=== PATIENT | male | born 1950 | race Caucasian/White ===

== ENCOUNTER → 2016-06-26 | Outpatient (CLI) | payer BC ==
[~2016-06-26] VITALS: Ht 172.7 cm; Wt 88.5 kg
[~2016-06-26] MED LIST: ACYC1CAP8 PO; AMLO10TA2 PO; ASPI81TA85 PO; ATOR1TAB18 PO; FISH1000 PO; HYDR12.55 PO; LIDOCAINE 2% INJ 100 MG/5 ML SYRINGE As Ordered ONE; LISI-538 PO; METF500T PO; MULT1TAB10 PO; NS 1,000 ML IV SCH; OMEP40CA2 PO; PROPOFOL 500 MG/50 ML VIAL As Ordered ONE
--- NOTE | 2016-06-26 09:10 | ROOR ---
Patient Name: Chidi Garcia Procedure Date: 06/26/2016 8:52 AM Date of : 1950 Age: 65 Room: [facility] Gender: Male Note Status: Finalized Procedure: Upper GI endoscopy + Biopsies Indications: Heartburn Providers: Ash Gaxiola MD Referring MD: ESPERANZA DUARTE Requesting Provider: Medicines: Monitored Anesthesia Care Complications: No immediate complications. Procedure: Pre-Anesthesia Assessment: - The heart rate, respiratory rate, oxygen saturations, blood pressure, adequacy of pulmonary ventilation, and response to care were monitored throughout the procedure. The Colonoscope was introduced through the anus and advanced to the second part of duodenum. The upper GI endoscopy was accomplished without difficulty. The patient tolerated the procedure well. Findings: The Z-line was irregular and was found 40 cm from the incisors. Multiple biopsies were obtained with cold forceps for evaluation to rule out Schwab's Esophagus randomly at the gastroesophageal junction. No other significant abnormalities were identified in a careful examination of the stomach. The exam of the duodenum was otherwise normal. Impression: - Z-line irregular, 40 cm from the incisors. - Multiple biopsies were obtained at the gastroesophageal junction. - The examination was otherwise normal. Recommendation: - Patient has a contact number available for emergencies. The signs and symptoms of potential delayed complications were discussed with the patient. Return to normal activities tomorrow. Written discharge instructions were provided to the patient. - High fiber diet. - Discharge patient to home. - Continue present medications. - Await pathology results. - Telephone GI clinic for pathology results in 1 week. - Follow an antireflux regimen. - The findings and recommendations were discussed with the patient's family. Ash Gaxiola MD Ash Gaxiola MD 06/26/2016 9:10:24 AM This report has been signed electronically. Number of Addenda: 0 Note Initiated On: 06/26/2016 8:52 AM Estimated Blood Loss: Estimated blood loss: none.
--- NOTE | 2016-06-26 09:27 | ROOR ---
Patient Name: Chidi Garcia Procedure Date: 06/26/2016 8:51 AM Date of : 1950 Age: 65 Room: [facility] Gender: Male Note Status: Finalized Procedure: Colonoscopy to Cecum + Cold Snare Polypectomy + Hemoclip Indications: High risk colon cancer surveillance: Personal history of colonic polyps, Last colonoscopy: 2011 Providers: Ash Gaxiola MD Referring MD: ESPERANZA DUARTE Requesting Provider: Medicines: Monitored Anesthesia Care Complications: No immediate complications. Procedure: Pre-Anesthesia Assessment: - The heart rate, respiratory rate, oxygen saturations, blood pressure, adequacy of pulmonary ventilation, and response to care were monitored throughout the procedure. The Endoscope was introduced through the mouth, and advanced to the cecum, identified by appendiceal orifice and ileocecal valve. The colonoscopy was performed without difficulty. The patient tolerated the procedure well. The quality of the bowel preparation was good. Findings: The perianal and digital rectal examinations were normal. Non-bleeding internal hemorrhoids were found during retroflexion. The hemorrhoids were small and Grade I (internal hemorrhoids that do not prolapse). Scattered small-mouthed diverticula were found in the recto-sigmoid colon, sigmoid colon and descending colon. A medium polyp was found at 60 cm proximal to the anus. The polyp was sessile. The polyp was removed with a cold snare. Resection and retrieval were complete. To prevent bleeding after the polypectomy, one hemostatic clip was successfully placed (MR conditional). There was no bleeding at the end of the procedure. The exam was otherwise without abnormality on direct and retroflexion views. Impression: - Non-bleeding internal hemorrhoids. - Diverticulosis in the recto-sigmoid colon, in the sigmoid colon and in the descending colon. - One medium polyp at 60 cm proximal to the anus, removed with a cold snare. Resected and retrieved. Clip (MR conditional) was placed. - The examination was otherwise normal on direct and retroflexion views. - The exam was otherwise normal to the cecum. Recommendation: - Patient has a contact number available for emergencies. The signs and symptoms of potential delayed complications were discussed with the patient. Return to normal activities tomorrow. Written discharge instructions were provided to the patient. - High fiber diet. - Discharge patient to home. - Continue present medications. - Await pathology results. - Telephone GI clinic for pathology results in 1 week. - Repeat colonoscopy in 5 years for surveillance based on pathology results. - Return to referring physician. - The findings and recommendations were discussed with the patient's family. Ash Gaxiola MD Ash Gaxiola MD 06/26/2016 9:27:03 AM This report has been signed electronically. Number of Addenda: 0 Note Initiated On: 06/26/2016 8:51 AM Estimated Blood Loss: Estimated blood loss: none.
[2016-06-26 09:58] VITALS: BP 119/65
== END | disposition home or self-care (01) ==
LOC: M OPP 07:55
PROVIDERS: ATTEND Internal Medicine Gastroenterology
DX: Z12.11 Encounter for screening for malignant neoplasm of colon (principal); D12.4 Benign neoplasm of descending colon; K57.30 Diverticulosis of large intestine without perforation or abscess without bleeding; K64.0 First degree hemorrhoids; Z86.010 Personal history of colon polyps; R12 Heartburn; K22.8 Other specified diseases of esophagus; I25.10 Atherosclerotic heart disease of native coronary artery without angina pectoris; I10 Essential (primary) hypertension; E78.5 Hyperlipidemia, unspecified; E11.9 Type 2 diabetes mellitus without complications; M19.90 Unspecified osteoarthritis, unspecified site; F41.9 Anxiety disorder, unspecified; G47.8 Other sleep disorders; H49.22 Sixth [abducent] nerve palsy, left eye; K42.9 Umbilical hernia without obstruction or gangrene; Z95.5 Presence of coronary angioplasty implant and graft; Z95.1 Presence of aortocoronary bypass graft; F14.21 Cocaine dependence, in remission; F12.21 Cannabis dependence, in remission; Z79.82 Long term (current) use of aspirin; Z79.84 Long term (current) use of oral hypoglycemic drugs; Z79.899 Other long term (current) drug therapy

== ENCOUNTER 2018-08-01 09:32 | Emergency (ER) | payer BC ==
[~2018-08-01] VITALS: Ht 175.3 cm; Wt 86.4 kg
[~2018-08-01 09:32] MED LIST changes: -ACYC1CAP8 PO; +ACYC200C8 PO; -AMLO10TA2 PO; +AMLO10TA5 PO; -ATOR1TAB18 PO; +ATOR80TA59 PO; -LIDOCAINE 2% INJ 100 MG/5 ML SYRINGE As Ordered ONE; -METF500T PO; +METF500T13 PO; -NS 1,000 ML IV SCH; -PROPOFOL 500 MG/50 ML VIAL As Ordered ONE
--- NOTE | 2018-08-01 10:01 | REP ---
All chest x-ray: Single view. History: Chest pain. Comparison study: October 23, 2011. Findings: EKG monitoring electrodes overlie the chest. Median sternotomy wires are seen. Heart is not enlarged. Pulmonary vasculature is not increased. The pleural angles are sharp. An old healed left clavicle fracture is again noted. Impression: No active disease. Prior sternotomy. Electronically Signed by Dimitrios Galaviz MD 08/01/2018 09:52 A
[2018-08-01 10:09] LABS: BASO % 0.4 % (0.0-1.0); EOS # 0.1 10^3/uL (0.0-0.50); EOS % 0.8 % (0.0-3.0); HEMATOCRIT 47.4 % (42.0-52.0); HEMOGLOBIN 16.3 g/dl (13.5-17.5); LYMPH # 2.1 10^3/uL (1.5-4.5); LYMPH % 24.7 % (24.0-44.0); MEAN CORPUSCULAR HEMOGLOBIN 30.1 pg (27.0-33.0); MEAN CORPUSCULAR HGB CONC 34.4 g/dl (32.0-36.5); MEAN CORPUSCULAR VOLUME 87.6 fl (80.0-96.0); MONO # 0.5 10^3/uL (0.0-0.8); MONO % 6.3 % (0.0-5.0); NEUTROPHILS # 5.6 10^3/uL (1.8-7.7); NEUTROPHILS % 67.4 % (36.0-66.0); PLATELET COUNT, AUTOMATED 220 10^3/uL (150-450); RED BLOOD COUNT 5.41 10^6/uL (4.30-6.10); WHITE BLOOD COUNT 8.3 10^3/uL (4.0-10.0)
[2018-08-01] MEDS ORDERED: NITR0.4S14 (10:19)
[2018-08-01 10:23] LABS: INR 0.97
[2018-08-01 10:45] LABS: ALBUMIN 3.8 GM/DL (3.2-5.2); ALT/SGPT 39 U/L (12-78); BILIRUBIN,DIRECT 0.2 MG/DL (0.0-0.2); BILIRUBIN,TOTAL 0.8 MG/DL (0.2-1.0); BLOOD UREA NITROGEN 18 MG/DL (7-18); CALCIUM LEVEL 8.7 MG/DL (8.8-10.2); CARBON DIOXIDE LEVEL 29 MEQ/L (21-32); CHLORIDE LEVEL 104 MEQ/L (98-107); CPK CREATINE PHOSPHOKINASE 127 U/L (39-308); GLOMERULAR FILTRATION RATE > 60.0 (>49); GLUCOSE, FASTING 173 MG/DL (70-100); LIPASE 134 U/L (73-393); MB/CK RELATIVE INDEX 1.57 (< OR =4); NT-PRO BNP 94 PG/ML (<125); POTASSIUM SERUM 3.6 MEQ/L (3.5-5.1); SODIUM LEVEL 140 MEQ/L (136-145); TOTAL PROTEIN 7.4 GM/DL (6.4-8.2); TROPONIN I 0.06 NG/ML (< 0.10)
[2018-08-01 13:08] LABS: MB/CK RELATIVE INDEX 1.86 (< OR =4); TROPONIN I 0.08 NG/ML (< 0.10)
[2018-08-01] MEDS ORDERED: CLOPIDOGREL 300 MG TAB (PLAVIX) PO STA (14:14)
[2018-08-01 16:17] VITALS: BP 173/83
--- NOTE | 2018-08-01 19:51 | ECGEPIP ---
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
--- NOTE | 2018-08-01 19:53 | ECGEPIP ---
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
--- NOTE | 2018-08-01 19:56 | ECGEPIP ---
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
== END 2018-08-01 16:20 | disposition short-term general hospital (02) ==
LOC: M ED 09:32
DX: I24.9 Acute ischemic heart disease, unspecified (principal); R00.1 Bradycardia, unspecified; R94.31 Abnormal electrocardiogram [ECG] [EKG]; I51.9 Heart disease, unspecified; I10 Essential (primary) hypertension; E78.5 Hyperlipidemia, unspecified; Z95.1 Presence of aortocoronary bypass graft; Z98.61 Coronary angioplasty status; Z82.49 Family history of ischemic heart disease and other diseases of the circulatory system; Z79.82 Long term (current) use of aspirin; Z79.899 Other long term (current) drug therapy